=== PATIENT | female | born 1955 | race Caucasian/White ===

== ENCOUNTER 2017-05-09 09:00 | Outpatient (RCR) | payer OTHER ==
--- NOTE | 2017-03-30 19:16 | ONCOLOGY FOLLOW UP NOTE ---
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 Initial tumor was Ki -67 positive 81%, suggesting on the biopsy of possible medullary features of a poorly differentiated invasive ductal carcinoma. Radiographically the tumor size measured 4.8 x 3.1 x 2.9 cm on initial mammography. Status post induction systemic chemotherapy, paclitaxel weekly with q.3 week carboplatin. Patient undergoing a lumpectomy and sentinel lymph node procedure on March 02, 2017 with pathologic CR. High risk stage T2 N0 M0. HISTORY This is a pleasant 61-year-old lady who was referred to me for discussion of radiation therapy options for recently diagnosed breast malignancy. Patient is here to discuss the pros and cons of therapeutic radiation. Pathology was reviewed in detail as well as radiographic studies for today's consultation. According to the patient she presented with a rapidly enlarging mass in the inferior quadrant of the right breast earlier this year. She was seen by primary care who immediately requested radiographic evaluation with mammogram and ultrasound. This confirmed a large poly-lobular mass in the inferior quadrant of the right breast. There was no skin redness, nipple inversion or skin retraction from the patient's history. Patient went on to have an MRI scan of both breasts which confirmed the tumor size of 4.[address] scan was also obtained on August 02, 2016 and at that time a mass was confirmed at 3.7 cm in the right breast with the high SUV max of 23. The study was otherwise unremarkable. Patient went on to receive systemic chemotherapy, directed by Dr. Schneider, with an excellent therapeutic response. Notable decrease in tumor size of the right breast within the first few months. Patient desired to have breast conservation surgery. She subsequently was referred to Dr. Braulio Vazquez. She then underwent a wide local excision lumpectomy and a sentinel lymph node procedure. No postoperative complications. Although the path report is not available to me at this time, I have received primary confirmation from other notes that the specimen demonstrated CR. Patient is referred to me for discussion of pros and cons of radiotherapy. She denies any weight loss. She is not having any persistent bone pain or headaches at this time. No swelling of the extremities. She was tested for BRCA1 and 2 and was negative. MEDICATIONS 1. Levothyroxine 50 mcg a day. 2. Losartan 100 mg q.day. ALLERGIES 1. CODEINE. 2. PENICILLIN. 3. SULFA. PAST MEDICAL HISTORY 1. Right breast carcinoma. 2. Hypertension. 3. Hypothyroidism. PAST SURGICAL HISTORY 1. Core needle biopsy of the right breast on July 07, 2016. 2. Lumpectomy, March 02, 2017. 3. Prior port placement. FAMILY HISTORY Notable for uterine carcinoma in a sister, colorectal carcinoma in a brother, melanoma in one brother and mother with breast cancer. SOCIAL HISTORY Patient is . She works at a local [employer] for the past 10 years. No children. Nonsmoker. Social alcohol use. PHYSICAL EXAMINATION GENERAL: A pleasant 61-year-old female. VITAL SIGNS: EMR. LUNGS: Clear to auscultation bilaterally. HEART: Sounds regular, no audible murmur. BREASTS: Right breast examination was performed. Excellent curvilinear scar healing is noted in the inferior quadrant of the right breast with excellent cosmetic result. Surgical scar measures approximately 5 cm. No significant induration. There is a small seroma present at the axillary location with no tenderness noted. Left breast was benign with no significant findings. ABDOMEN: No gross organomegaly. EXTREMITIES: No edema or cyanosis. NEUROLOGIC: Exam is grossly intact. IMPRESSION Overall the patient has done exceptionally well to date. I reviewed her initial imaging studies and confirmed the tumor size at 4.8 cm. Patient responded exceptionally well to systemic chemotherapy with pathologic CR. I went through the NCCN guidelines version 3.2017, as well as the staging for this patient. The recommendation at this time would be to proceed with whole- breast radiotherapy with simultaneous coverage of the breast as well as the supraclavicular and infraclavicular lymph nodes. The rationale for this treatment recommendation was reviewed with the patient and all questions answered to her satisfaction. We will proceed tomorrow with CT treatment planning and start the radiotherapy course tentatively on Monday of next week. Patient will be monitored closely for any signs of skin reaction and treatment doses, and techniques adjusted accordingly. All questions were answered to her satisfaction and signed consent was obtained for treatment today. [facility]
--- NOTE | 2017-04-03 15:05 | Oncology Note ---
see Haley for education dictation [employer]ICO [employer]AY [employer], ONC Apr 03, 2017 15:05
[~2017-05-09 09:00] MED LIST: DEX4 PO; DOCU-416 PO; LEVO50TA86 PO; LIDO30CR3 TP; LISI-374 PO; LORA-1455 PO; ONDA8TAB94 PO; OXYC-854 PO; PYRI100T57 PO
== END 2017-05-19 10:23 | disposition home or self-care (01) ==
LOC: RAON 09:00
PROVIDERS: ATTEND Radiology Radiation Oncology
DX: Z51.0 Encounter for antineoplastic radiation therapy (principal); C50.811 Malignant neoplasm of overlapping sites of right female breast; G62.9 Polyneuropathy, unspecified; R53.83 Other fatigue; I10 Essential (primary) hypertension; E03.9 Hypothyroidism, unspecified
CPT/HCPCS: 77280; 77290; 77295; 77300; 77334; 77336; 77412; 77417; 99202; 99212

== ENCOUNTER 2017-05-23 09:08 | Outpatient (RCR) | payer OTHER | END 2017-05-25 13:59 | disposition home or self-care (01) | LOC: RAON 09:08 | PROVIDERS: ATTEND Radiology Radiation Oncology | DX: Z51.0 Encounter for antineoplastic radiation therapy (principal); C50.911 Malignant neoplasm of unspecified site of right female breast; Z17.1 Estrogen receptor negative status [ER-]; I10 Essential (primary) hypertension; E03.9 Hypothyroidism, unspecified | CPT/HCPCS: 77336; 77412 ==

== ENCOUNTER → 2017-07-27 | Outpatient (CLI) | payer OTHER ==
--- NOTE | 2017-07-27 15:05 | RADIOLOGY IMAGING REPORT ---
FACILITY: [facility] - [place] PATIENT NAME: ALVAREZ ALICIA : [id number] MR: [id number] V: [id number] EXAM DATE: [id number] ORDERING PHYSICIAN: RICO MCKAY TECHNOLOGIST: Linda Dennis PROCEDURE:BILATERAL DIAGNOSTIC DIGITAL MAMMOGRAM WITH CAD ASSISTED INTERPRETATION & 3D TOMOSYNTHESIS COMPARISON:Prior mammograms 07/01/16, 07/31/15. INDICATIONS:PRIOR HISTORY OF RIGHT BREAST CA FINDINGS: Moderately heterogeneous fibroglandular tissue is seen throughout the breasts. The previously noted lobular mass in the medial inferior portion of the Right breast has been surgically removed. There is a biopsy clip in the upper outer quadrant of the Right breast as well from previous Ultrasound guided breast biopsy. The remainder of the parenchymal pattern has remained stable. There is no evidence of malignant appearing mass, malignant appearing calcifications or other secondary sign of malignancy in either breast. DIAGNOSTIC CATEGORY 2--BENIGN FINDING. RECOMMENDATIONS: ROUTINE MAMMOGRAM AND CLINICAL EVALUATION. IMPRESSION: BIRADS 2: Benign finding No significant abnormality is seen. Dictated by: Dafne Alanis M.D. on 07/27/2017 at 13:32 Transcribed by: THERESA on 07/27/2017 at 14:15 Approved by: Dafne Alanis M.D. on 07/27/2017 at 15:04 [facility]
== END ==
LOC: MAMO 09:26
PROVIDERS: ATTEND Nurse Practitioner Family
DX: C50.911 Malignant neoplasm of unspecified site of right female breast (principal)
CPT/HCPCS: 77062; 77066

== ENCOUNTER 2017-08-01 09:03 | Outpatient (RCR) | payer OTHER ==
[2017-08-01 09:12] VITALS: BP 177/112
[2017-08-01 09:26] LABS: PLATELET COUNT, AUTOMATED 234 K/uL (150-450)
[2017-08-01] MEDS ORDERED: LISI-374 PO (10:58)
== END 2017-08-04 14:16 | disposition home or self-care (01) ==
LOC: RAON 09:03
PROVIDERS: ATTEND Radiology Radiation Oncology
DX: Z85.3 Personal history of malignant neoplasm of breast (principal); Z92.3 Personal history of irradiation; Z92.21 Personal history of antineoplastic chemotherapy; I10 Essential (primary) hypertension; E03.9 Hypothyroidism, unspecified
CPT/HCPCS: 36415; 82040; 82247; 82310; 82374; 82435; 82565; 82947; 84075; 84132; 84155; 84295; 84443; 84450; 84460; 84520; 85025; 99211; 99212

== ENCOUNTER 2017-10-31 10:25 | Outpatient (RCR) | payer OTHER | END 2017-11-07 12:10 | disposition home or self-care (01) | LOC: RAON 10:25 | PROVIDERS: ATTEND Radiology Radiation Oncology | DX: Z85.3 Personal history of malignant neoplasm of breast (principal); Z92.3 Personal history of irradiation; Z92.21 Personal history of antineoplastic chemotherapy; I10 Essential (primary) hypertension; E03.9 Hypothyroidism, unspecified | CPT/HCPCS: 99212 ==

== ENCOUNTER 2018-02-05 13:17 | Outpatient (RCR) | payer OTHER | END 2018-02-26 14:27 | disposition home or self-care (01) | LOC: RAON 13:17 | PROVIDERS: ATTEND Radiology Radiation Oncology | DX: C50.911 Malignant neoplasm of unspecified site of right female breast (principal); Z17.1 Estrogen receptor negative status [ER-] | CPT/HCPCS: 99212 ==

== ENCOUNTER 2018-07-04 16:49 | Outpatient (RCR) | payer OTHER | END 2018-07-05 15:23 | disposition home or self-care (01) | LOC: RAON 16:49 | PROVIDERS: ATTEND Radiology Radiation Oncology | DX: C50.911 Malignant neoplasm of unspecified site of right female breast (principal) ==

== ENCOUNTER → 2018-08-01 | Outpatient (CLI) | payer OTHER ==
--- NOTE | 2018-08-02 11:56 | RADIOLOGY IMAGING REPORT ---
FACILITY: [facility] - [place] PATIENT NAME: ALVAREZ ALICIA : [id number] MR: [id number] V: [id number] EXAM DATE: [id number] ORDERING PHYSICIAN: MAURI PIEDRA TECHNOLOGIST: Arelis Da Silva PROCEDURE:BILATERAL DIAGNOSTIC DIGITAL MAMMOGRAM WITH CAD ASSISTED INTERPRETATION & 3D TOMOSYNTHESIS COMPARISON:Prior mammograms 07/27/17, 07/01/16, 07/31/15. INDICATIONS:prior right breast cancer FINDINGS: The breasts are heterogeneously dense which can obscure small masses. There is a small area of architectural distortion in the deep central Right breast that appears compressible likely related to the prior lumpectomy. Biopsy clip in the upper outer quadrant of the Right breast also noted from the previous Ultrasound guided biopsy. The parenchymal pattern has otherwise remained stable allowing for difference in mammographic technique & patient positioning. DIAGNOSTIC CATEGORY 2--BENIGN FINDING. RECOMMENDATIONS: ROUTINE MAMMOGRAM AND CLINICAL EVALUATION. IMPRESSION: BIRADS 2: Benign finding. No significant abnormality is seen at this time. Dictated by: Dafne Alanis M.D. on 08/01/2018 at 16:58 Transcribed by: THERESA on 08/02/2018 at 8:44 Approved by: Dafne Alanis M.D. on 08/02/2018 at 11:55 [facility]
== END ==
LOC: MAMO 00:49
PROVIDERS: ATTEND Internal Medicine Medical Oncology
DX: C50.911 Malignant neoplasm of unspecified site of right female breast (principal)
CPT/HCPCS: 77062; 77066

== ENCOUNTER 2018-08-07 13:51 | Outpatient (RCR) | payer OTHER ==
[2018-07-30 14:49] VITALS: BP 171/110
[2018-07-30 15:02] LABS: PLATELET COUNT, AUTOMATED 237 K/uL (150-450)
[2018-08-07 14:08] VITALS: BP 157/97
--- NOTE | 2018-08-07 23:19 | ONCOLOGY FOLLOW UP NOTE ---
EVENT DATE: August 07, 2018 CHIEF COMPLAINT/REASON FOR VISIT Known history of breast carcinoma. Patient is seen for oncology surveillance regarding triple-negative right-sided breast carcinoma with detailed history below. HISTORY OF PRESENT ILLNESS Patient was diagnosed with right breast mass in June 2016. She had MRI scan of both breasts which confirmed a mass on the right side at 4.8 cm. PET/CT scan confirmed high metabolic activity with an SUV of 23. Biopsies 07/07/16 revealed a grade 3, ER-negative, OK-negative, and HER2- negative malignancy. Ki-67 was positive 81%. Initial mammogram size was 4.8 x 3.1 x 2.9 cm. Patient received induction systemic chemotherapy with paclitaxel and carboplatin. She then underwent a lumpectomy and sentinel lymph node procedure 03/02/17 with a pathologic complete response. She was felt to be high-risk, stage T2 N0 M0. Patient was BRCA-1 and BRCA-2 negative. Whole breast radiation therapy completed 05/22/17. INTERVAL HISTORY Patient was seen back in the Oncology Clinic for surveillance appointment. She prefers not to drive down to [place] if possible, so she elected to be followed in the Radiology Clinic exclusively at this time with referral back to her medical oncology team if any suspicious abnormalities are detected. She follow up with Kaitlynn Garcia for her blood pressure medications and general medical care. I believe she is seen twice a year. PAST MEDICAL HISTORY 1. Right-sided breast carcinoma 07/15. 2. Hypertension. 3. Hyperthyroidism. SURGICAL HISTORY 1. Prior PowerPort placement and then removal. 2. Right breast lumpectomy and sentinel lymph node procedure surgery, Dr. Braulio Vazquez. RADIATION THERAPY 4500 cGy in 25 fractions with boost 1440 cGy. ALLERGIES PENICILLIN, SULFA, LATEX. MEDICATIONS 1. Lisinopril 50 mg a day. 2. Pyridoxine 100 mg b.i.d. 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 Nonsmoker. Social alcohol use. COMPREHENSIVE REVIEW OF SYSTEMS Negative with the exception of neuropathy and occasional twinge of pain on the right breast with certain activities. PHYSICAL EXAMINATION GENERAL: Pleasant 63-year-old female. Karnofsky Performance Status 100. VITAL SIGNS: BP 137/97, pulse 63, respirations 16. Weight looks like 158. O2 sat 95% on room air. LUNGS: Clear bilaterally. LYMPHATICS: No peripheral lymphadenopathy. BREASTS: Careful palpation of the left and right breasts reveals excellent cosmetic outcome. No suspicious abnormalities. No significant induration noted today. No nodularity. NEUROLOGIC: Grossly intact. IMAGING Review of mammograms performed on 08/01/18: No suspicious abnormalities. LABORATORY Studies from 07/30/18 were reviewed with the patient, which were all normal. IMPRESSION No evidence of breast cancer recurrence. Patient is now two years remote from her cancer diagnosis. She is approximately a year and three months remote from the end of radiation therapy course. Overall, she has done exceptionally well. PLAN Return to clinic in six months with clinical exam and laboratory studies at that time. Mammogram in a year. ABRAHAN
== END 2018-09-07 13:03 | disposition home or self-care (01) ==
LOC: RAON 13:51
PROVIDERS: ATTEND Radiology Radiation Oncology
DX: Z85.3 Personal history of malignant neoplasm of breast (principal); Z92.3 Personal history of irradiation
CPT/HCPCS: 36415; 82040; 82247; 82310; 82374; 82435; 82565; 82947; 84075; 84132; 84155; 84295; 84450; 84460; 84520; 85025; 99212